=== PATIENT | female | born 1970 | race Caucasian/White ===

== ENCOUNTER 2020-01-20 06:00 | Day surgery (SDC) | payer BC ==
[~2020-01-20] VITALS: Ht 160 cm; Wt 76.1 kg
[2020-01-20] MEDS ORDERED: CONEST.625 PO (06:38)
[2020-01-20] MEDS ORDERED: MONT10T PO (06:38)
[2020-01-20] MEDS ORDERED: BUDE10.22 INH (06:39)
[2020-01-20] MEDS ORDERED: CENTRUM SILVER1 EAC2 PO (06:40)
[2020-01-20] MEDS ORDERED: DHEA PO (06:41)
[2020-01-20] MEDS ORDERED: MAGNESIUM OXID500 MG PO (06:41)
[2020-01-20] MEDS ORDERED: IBUP600 PO (06:42)
[2020-01-20] MEDS ORDERED: ACET500 PO (06:42)
--- NOTE | 2020-01-20 06:55 | NUR ---
INTO [facility] [employer] VIA PERSONAL SCOOTER. History, Chart, Medications and Allergies reviewed before start of procedure.Patient confirms NPO status and agrees with scheduled surgery. Patient reports completing Chlorhexadine shower X2 prior to admission to hospital.Surgical site prepped with 2% Chlorhexidine cloth wipe. Lungs clear T/O to Auscultation. Patient States Post-Procedure ride home has been arranged WITH .
--- NOTE | 2020-01-20 07:36 | NUR ---
PT PERSONAL BOOT FOR RIGHT FOOT AND SCOOTER REMAIN IN SDS, LABELED AND PUT IN THE CORNER OF BAY 7
--- NOTE | 2020-01-20 11:13 | NUR ---
RECEIVED REPORT AND ASSUMED CARE OF PATIENT FROM FLOR HAWKINS RN. PT STATED SHE WAS READY TO GO HOME. Discharge instructions reviewed with patient. Patient verbalizes understanding. Copy given to patient to take home. Patient States Post-Procedure ride home has been arranged. Discharged via wheelchair to private car for ride home. ALL BELONINGS RETURNED TO PATIENT. PROVIDED ICE BAGS X2. BRACE AND SCOOTER RETUNED. PT HAD SCRIPT FOR PAIN MED ALREADY AT HOME.
== END 2020-01-20 22:46 | disposition home or self-care (01) ==
LOC: ORSCMMR 06:00 → EDSTATUS 07:30 → ORSCMMR 07:30 → ORD 07:30 → ORSCMMR 22:46
PROVIDERS: Orthopaedic Surgery
PROC: 0QSJ04Z Reposition Right Fibula with Internal Fixation Device, Open Approach (ICD-10-PCS; principal; 2020-01-20 07:30)
DX: S82.61XA Displaced fracture of lateral malleolus of right fibula, initial encounter for closed fracture (principal); J45.909 Unspecified asthma, uncomplicated; Z79.899 Other long term (current) drug therapy
CPT/HCPCS: A9270-GY; C1713; J0690; J1100; J2250; J2370; J2405; J2704; J2710; J3010; J7120

== ENCOUNTER → 2023-01-07 | Outpatient (CLI) | payer BC ==
[~2023-01-07] MED LIST: ACET500 PO; BUDE10.22 INH; CENTRUM SILVER1 EAC2 PO; CONEST.625 PO; DHEA PO; IBUP600 PO; MAGNESIUM OXID500 MG PO; MONT10T PO
[2023-01-07 13:54] LABS: Source, Urine Clean Catch
[2023-01-07 18:18] LABS: Appearance, Urine Clear (Clear); Bilirubin, Urine Neg (Neg); Blood, Urine Neg (Neg); Color, Urine Yellow (P-Yellow); Glucose Qualitative, Urine Neg (Neg); Ketones, Urine Neg (Neg); Leukocyte Esterase, Urine Neg (Neg); Nitrite, Urine Neg (Neg); Protein, Urine Neg (Neg); Specific Gravity, Urine 1.015 (1.003-1.022); Urobilinogen, Urine NORM (Normal); pH, Urine 6.5 (5.0-8.0)
== END | disposition home or self-care (01) ==
LOC: LAB 13:52 → LAB SHORT 13:52
PROVIDERS: Nurse Practitioner Family
DX: R31.9 Hematuria, unspecified (principal)
CPT/HCPCS: 81003